=== PATIENT | female | born 1945 | race Caucasian/White ===

== ENCOUNTER 2018-03-11 17:26 | Emergency (ER) | payer MEDICARE ==
[~2018-03-11] VITALS: Ht 160 cm; Wt 99.8 kg
--- OUTSIDE RECORDS SUMMARY | 2018-03-11 17:28 | XMS REPORT ---
Author Author [facility] Address Unknown Phone Unavailable Care Team Providers Care Math And Physics Instructor Name Role Phone Unavailable Unavailable Problems This patient has no known problems. Allergies, Adverse Reactions, Alerts This patient has no known allergies or adverse reactions. Medications This patient has no known medications.
--- OUTSIDE RECORDS SUMMARY | 2018-03-11 17:28 | XMS REPORT | Clinical Summary ---
Author Author [facility] Address Unknown Phone Unavailable Care Team Providers Care Professor Of Oceanography Name Role Phone Asked, No Pcp PCP Unavailable Allergies No Known Allergies Medications Not on file Active Problems Not on file Encounters Care Team Description Date Type Specialty Shantanu Villarreal DO Hypertension, unspecified type (Primary Dx); Acute nonintractable headache, unspecified headache type 03/15/2017 Emergency Emergency Medicine - 03/16/2017 after 03/10/2017 Family History Medical History Relation Name Comments Heart attack Cousin Relation Name Status Comments Cousin Social History Date Tobacco Use Types Packs/Day Years Used Never Smoker Smokeless Tobacco: Never Used Alcohol Use Drinks/Week oz/Week Comments No Sex Assigned at Date Recorded Not on file Industry Job Start Date Occupation Not on file Not on file Not on file Travel End Travel History Travel Start No recent travel history available. Last Filed Vital Signs Time Taken Vital Sign Reading 03/16/2017 3:09 AM CATHETERIZATION LABORATORY TECHNICIAN Blood Pressure 159/65 03/16/2017 3:09 AM CATHETERIZATION LABORATORY TECHNICIAN Pulse 62 03/16/2017 3:09 AM CATHETERIZATION LABORATORY TECHNICIAN Temperature 36.9 C (98.4 F) 03/16/2017 3:09 AM CATHETERIZATION LABORATORY TECHNICIAN Respiratory Rate 16 03/16/2017 3:09 AM CATHETERIZATION LABORATORY TECHNICIAN Oxygen Saturation 97% - Inhaled Oxygen - Concentration - Weight - 03/15/2017 6:03 PM CATHETERIZATION LABORATORY TECHNICIAN Height 162.6 cm (5' 4") - Body Mass Index - Plan of Treatment Not on file Procedures Comments Procedure Name Priority Date/Time Associated Diagnosis ECG ED PRELIMINARY Routine 03/16/2017 INTERPRETATION 1:53 AM CATHETERIZATION LABORATORY TECHNICIAN ECG 12-LEAD STAT 03/16/2017 12:54 AM CATHETERIZATION LABORATORY TECHNICIAN ZZESTIMATED GFR STAT 03/16/2017 12:46 AM CATHETERIZATION LABORATORY TECHNICIAN PHOSPHORUS LEVEL STAT 03/16/2017 12:46 AM CATHETERIZATION LABORATORY TECHNICIAN MAGNESIUM LEVEL STAT 03/16/2017 12:46 AM CATHETERIZATION LABORATORY TECHNICIAN COMPREHENSIVE METABOLIC STAT 03/16/2017 PANEL 12:46 AM CATHETERIZATION LABORATORY TECHNICIAN URINALYSIS SCREEN AND STAT 03/16/2017 MICROSCOPY, WITH REFLEX 12:46 AM CATHETERIZATION LABORATORY TECHNICIAN TO CULTURE HC COMPLETE BLD COUNT STAT 03/16/2017 W/AUTO DIFF 12:46 AM CATHETERIZATION LABORATORY TECHNICIAN GRAM STAIN STAT 03/16/2017 12:46 AM CATHETERIZATION LABORATORY TECHNICIAN URINE CULTURE STAT 03/16/2017 12:46 AM CATHETERIZATION LABORATORY TECHNICIAN after 03/10/2017 Results * ECG ED Preliminary Interpretation - NOT AN ORDER (03/16/2017 1:53 AM CATHETERIZATION LABORATORY TECHNICIAN) Narrative Performed At Shantanu Villarreal DO 03/16/20171:53 AM ECG ED Preliminary Interpretation - Not an Order Performed by: SHANTANU VILLARREAL Authorized by: SHANTANU VILLARREAL ECG reviewed by ED Physician in the absence of a hebrew professor: yes Interpretation: Interpretation: abnormal Rate: ECG rate:62 ECG rate assessment: normal Rhythm: Rhythm: sinus rhythm Ectopy: Ectopy: none QRS: QRS axis:Normal QRS intervals:Normal Conduction: Conduction: abnormal Abnormal conduction: 1st degree ST segments: ST segments:Normal T waves: T waves: normal * ECG 12 lead (03/16/2017 12:54 AM CATHETERIZATION LABORATORY TECHNICIAN) Ventricular rate 62 [facility] Atrial rate 62 [facility] AL interval 230 [facility] QRSD interval 74 [facility] QT interval 384 [facility] QTC interval 389 [facility] P axis 1 64 [facility] QRS axis 1 17 [facility] T wave axis 45 [facility] EKG impression Sinus rhythm with 1st degree [facility] AV block-Anterior infarct , age undetermined-Abnormal ECG-No previous ECGs available- Performing Organization Address City/State/Zipcode Phone Number [facility] MUSE [address] [place] [address] * Urinalysis screen and microscopy, with reflex to culture (03/16/2017 12:46 AM CATHETERIZATION LABORATORY TECHNICIAN) Specimen site Clean catch [facility] DEPARTMENT OF PATHOLOGY AND GENOMIC MEDICINE Color, UA Straw [facility] DEPARTMENT OF PATHOLOGY AND GENOMIC MEDICINE Appearance, UA Clear [facility] DEPARTMENT OF PATHOLOGY AND GENOMIC MEDICINE Specific gravity, UA 1.018 1.001 - 1.035 [facility] DEPARTMENT OF PATHOLOGY AND GENOMIC MEDICINE pH, UA 6.0 5.0 - 8.5 [facility] DEPARTMENT OF PATHOLOGY AND GENOMIC MEDICINE Protein, UA 2+ (A) Negative [facility] DEPARTMENT OF PATHOLOGY AND GENOMIC MEDICINE Glucose, UA Negative Negative [facility] DEPARTMENT OF PATHOLOGY AND GENOMIC MEDICINE Ketones, UA Negative Negative [facility] DEPARTMENT OF PATHOLOGY AND GENOMIC MEDICINE Bilirubin, UA Negative Negative [facility] DEPARTMENT OF PATHOLOGY AND GENOMIC MEDICINE Blood, UA Small (A) Negative [facility] DEPARTMENT OF PATHOLOGY AND GENOMIC MEDICINE Nitrite, UA Negative Negative [facility] DEPARTMENT OF PATHOLOGY AND GENOMIC MEDICINE Urobilinogen, UA <2.0 <2.0 [facility] DEPARTMENT OF PATHOLOGY AND GENOMIC MEDICINE Leukocyte esterase, UA Large (A) Negative [facility] DEPARTMENT OF PATHOLOGY AND GENOMIC MEDICINE Epithelial cells, UA <1 /HPF [facility] DEPARTMENT OF PATHOLOGY AND GENOMIC MEDICINE Round epithelial cells, 1 0 - 1 /HPF [facility] DEPARTMENT OF UA PATHOLOGY AND GENOMIC MEDICINE WBC, UA 62 (H) 0 - 4 /HPF [facility] DEPARTMENT OF PATHOLOGY AND GENOMIC MEDICINE RBC, UA 6 (H) 0 - 2 /HPF [facility] DEPARTMENT OF PATHOLOGY AND GENOMIC MEDICINE Bacteria, UA Few None seen [facility] DEPARTMENT OF PATHOLOGY AND GENOMIC MEDICINE WBC clumps, UA Few (A) [facility] DEPARTMENT OF PATHOLOGY AND GENOMIC MEDICINE Yeast, UA None seen [facility] DEPARTMENT OF PATHOLOGY AND GENOMIC MEDICINE Yeast with pseudohyphae, None seen [facility] DEPARTMENT OF UA PATHOLOGY AND GENOMIC MEDICINE Specimen Urine Performing Organization Address City/[facility] Phone Number [facility] DEPARTMENT OF [address] [place] [address] PATHOLOGY AND GENOMIC MEDICINE * Estimated GFR (03/16/2017 12:46 AM CATHETERIZATION LABORATORY TECHNICIAN) GFR Non Af Amer 37 (A) mL/min/1.73 m2 [facility] DEPARTMENT OF PATHOLOGY AND GENOMIC MEDICINE GFR Af Amer 45 (A) mL/min/1.73 m2 [facility] DEPARTMENT OF Comment: PATHOLOGY AND Chronic kidney disease: <60 GENOMIC MEDICINE mL/min/1.73m2 Kidney failure: <15 mL/min/1.73m2 The estimated GFR is calculated from the IDMS-traceable Modification of Diet in Renal Disease Equation. The accuracy of the calculation is poor when the creatinine is normal. Calculated values >90 mL/min/1.73m2 are not reported. This equation has not been validated in children (<18 years), women, the elderly (>70 years), or ethnic groups other than Caucasians and Americans. Specimen Plasma specimen Performing Organization Address City/[facility]/Zipcode Phone Number [address] [address] PATHOLOGY AND GENOMIC MEDICINE * Gram stain (03/16/2017 12:46 AM CATHETERIZATION LABORATORY TECHNICIAN) Gram stain result Occasional WBC's [facility] DEPARTMENT OF Occasional Gram positive cocci PATHOLOGY AND in [facility] GENOMIC MEDICINE Occasional Gram positive rods Rare Gram negative rods Comment: Specimen Information Specimen Source: Urine Specimen Site: See UA Specimen Urine Performing Organization Address [facility] Phone Number [address] [address] PATHOLOGY AND GENOMIC MEDICINE * CBC with platelet and differential (03/16/2017 12:46 AM CATHETERIZATION LABORATORY TECHNICIAN) WBC 7.11 4.50 - 11.00 k/uL [facility] DEPARTMENT OF PATHOLOGY AND GENOMIC MEDICINE RBC 4.41 4.20 - 5.50 m/uL [facility] DEPARTMENT OF PATHOLOGY AND GENOMIC MEDICINE HGB 12.7 12.0 - 16.0 g/dL [facility] DEPARTMENT OF PATHOLOGY AND GENOMIC MEDICINE HCT 38.5 37.0 - 47.0 % [facility] DEPARTMENT OF PATHOLOGY AND GENOMIC MEDICINE MCV 87.3 82.0 - 100.0 fL [facility] DEPARTMENT OF PATHOLOGY AND GENOMIC MEDICINE MCH 28.8 27.0 - 34.0 pg [facility] DEPARTMENT OF PATHOLOGY AND GENOMIC MEDICINE MCHC 33.0 31.0 - 37.0 g/dL [facility] DEPARTMENT OF PATHOLOGY AND GENOMIC MEDICINE RDW - SD 40.5 37.0 - 55.0 fL [facility] DEPARTMENT OF PATHOLOGY AND GENOMIC MEDICINE MPV 9.9 8.8 - 13.2 fL [facility] DEPARTMENT OF PATHOLOGY AND GENOMIC MEDICINE Platelet count 201 150 - 400 k/uL [facility] DEPARTMENT OF PATHOLOGY AND GENOMIC MEDICINE Nucleated RBC 0.00 /100 WBC [facility] DEPARTMENT OF PATHOLOGY AND GENOMIC MEDICINE Neutrophils 56.9 39.0 - 69.0 % [facility] DEPARTMENT OF PATHOLOGY AND GENOMIC MEDICINE Lymphocytes 27.8 25.0 - 45.0 % [facility] DEPARTMENT OF PATHOLOGY AND GENOMIC MEDICINE Monocytes 12.5 (H) 0.0 - 10.0 % [facility] DEPARTMENT OF PATHOLOGY AND GENOMIC MEDICINE Eosinophils 2.0 0.0 - 5.0 % [facility] DEPARTMENT OF PATHOLOGY AND GENOMIC MEDICINE Basophils 0.7 0.0 - 1.0 % [facility] DEPARTMENT OF PATHOLOGY AND GENOMIC MEDICINE Immature granulocytes 0.1Comment: "Immature 0.0 - 1.0 % [facility] DEPARTMENT OF granulocytes" (promyelocytes, PATHOLOGY AND myelocytes, metamyelocytes) GENOMIC MEDICINE Specimen Blood Performing Organization Address City/[facility] Phone Number [facility] [place] [address] PATHOLOGY AND GENOMIC MEDICINE * Urine culture (03/16/2017 12:46 AM CATHETERIZATION LABORATORY TECHNICIAN) Urine culture isolate Gram negative rods [facility] DEPARTMENT OF 10-2 cfu/ml PATHOLOGY AND (A) GENOMIC MEDICINE Comment: Specimen Information Specimen Source: Urine Specimen Site: See UA Urine culture isolate Mixed Gram positive naif [facility] DEPARTMENT OF 10-5 cfu/ml PATHOLOGY AND (A) GENOMIC MEDICINE Specimen Urine Performing Organization Address [facility] Phone Number [facility] [place] [address] PATHOLOGY AND GENOMIC MEDICINE * Phosphorus level (03/16/2017 12:46 AM CATHETERIZATION LABORATORY TECHNICIAN) Phosphorus 4.2 2.4 - 4.5 mg/dL [facility] DEPARTMENT OF PATHOLOGY AND GENOMIC MEDICINE Specimen Plasma specimen Performing Organization Address [facility] [place] [address] PATHOLOGY AND GENOMIC MEDICINE * Magnesium level (03/16/2017 12:46 AM CATHETERIZATION LABORATORY TECHNICIAN) Magnesium 1.9 1.6 - 2.4 mg/dL [facility] DEPARTMENT OF PATHOLOGY AND GENOMIC MEDICINE Specimen Plasma specimen Performing Organization Address City/[facility] Phone Number [facility] [place] [address] PATHOLOGY AND GENOMIC MEDICINE * Comprehensive metabolic panel (03/16/2017 12:46 AM CATHETERIZATION LABORATORY TECHNICIAN) Sodium 140 135 - 148 mEq/L [facility] DEPARTMENT OF PATHOLOGY AND GENOMIC MEDICINE Potassium 5.2 (H) 3.5 - 5.0 mEq/L [facility] DEPARTMENT OF PATHOLOGY AND GENOMIC MEDICINE Chloride 100 98 - 112 mEq/L [facility] DEPARTMENT OF PATHOLOGY AND GENOMIC MEDICINE CO2 26 24 - 31 mEq/L [facility] DEPARTMENT OF PATHOLOGY AND GENOMIC MEDICINE Anion gap 14 7 - 15 mEq/L [facility] DEPARTMENT OF Comment: PATHOLOGY AND Starting from June GENOMIC MEDICINE , anion gap calculation no longer incorporates potassium. Please note the change. BUN 27 (H) 8 - 23 mg/dL [facility] DEPARTMENT OF PATHOLOGY AND GENOMIC MEDICINE Creatinine 1.4 (H) 0.5 - 0.9 mg/dL [facility] DEPARTMENT OF PATHOLOGY AND GENOMIC MEDICINE Glucose 102 (H) 65 - 99 mg/dL [facility] DEPARTMENT OF PATHOLOGY AND GENOMIC MEDICINE Calcium 10.0 8.8 - 10.2 mg/dL [facility] DEPARTMENT OF PATHOLOGY AND GENOMIC MEDICINE Protein 8.3 6.3 - 8.3 g/dL [facility] DEPARTMENT OF Comment: PATHOLOGY AND [place] GENOMIC MEDICINE 4.6-7.0 g/dL 1 week 4.4-7.6 g/dL 7 months-1year 5.1-7.3 g/dL 1-2 years5.6-7 .5 g/dL >3 years6.0-8 .0 g/dL 18-150 6.3-8.3 g/dL Albumin 3.3 (L) 3.5 - 5.0 g/dL [facility] DEPARTMENT OF PATHOLOGY AND GENOMIC MEDICINE A/G ratio 0.7 0.7 - 3.8 [facility] DEPARTMENT OF PATHOLOGY AND GENOMIC MEDICINE Alkaline phosphatase 82 35 - 104 U/L [facility] DEPARTMENT OF PATHOLOGY AND GENOMIC MEDICINE AST 41 (H) 10 - 35 U/L [facility] DEPARTMENT OF PATHOLOGY AND GENOMIC MEDICINE ALT 34 5 - 50 U/L [facility] DEPARTMENT OF PATHOLOGY AND GENOMIC MEDICINE Total bilirubin 0.3 0.0 - 1.2 mg/dL [facility] DEPARTMENT OF PATHOLOGY AND GENOMIC MEDICINE Specimen Plasma specimen Performing Organization Address City/State/Zipcode Phone Number [facility] DEPARTMENT OF [address] [place] [address] PATHOLOGY AND GENOMIC MEDICINE after 03/10/2017 Insurance Payer Benefit Subscriber ID Type Phone Address Plan / Group [facility] ADV[facility] xxxxxxxxxxx O ADVANTAGE [facility] Advance Directives Patient has advance care planning documents on file. For more information, miesha woodall contact: Stefan Trejo [address] [place] [address]
--- NOTE | 2018-03-11 18:03 | Diagnostic Imaging Report ---
EXAMINATION: CXR 2 VIEW - HOPD INDICATION: Back pain from fall. Hit posterior right ribs one week ago. COMPARISON: None FINDINGS: TUBES and LINES: None. LUNGS: Lungs are well inflated. Lungs are clear. There is no evidence of pneumonia or pulmonary edema. PLEURA: No pleural effusion or pneumothorax. HEART AND MEDIASTINUM: The cardiomediastinal silhouette is unremarkable. BONES AND SOFT TISSUES: No acute osseous lesion. Left rotator cuff anchor sutures. Soft tissues are unremarkable. UPPER ABDOMEN: No free air under the diaphragm. IMPRESSION: No acute thoracic abnormality. Signed by: Dr. Jordy Hou M.D. on 03/11/2018 6:00 PM
== END 2018-03-11 18:44 | disposition home or self-care (01) ==
LOC: FSED 17:26
DX: M54.6 Pain in thoracic spine (principal); R07.89 Other chest pain; S20.211A Contusion of right front wall of thorax, initial encounter; M62.830 Muscle spasm of back; W01.198A Fall on same level from slipping, tripping and stumbling with subsequent striking against other object, initial encounter; Y92.008 Other place in unspecified non-institutional (private) residence as the place of occurrence of the external cause; I10 Essential (primary) hypertension
CPT/HCPCS: 71046; 99283

== ENCOUNTER 2018-03-31 18:27 | Emergency (ER) | payer MEDICARE ==
[~2018-03-31] VITALS: Ht 160 cm; Wt 99.8 kg
--- OUTSIDE RECORDS SUMMARY | 2018-03-31 18:29 | XMS REPORT | Clinical Summary ---
Author Author [facility] Organization [facility] Address Unknown Phone Unavailable Care Team Providers Care Cue Selector Name Role Phone Asked, No Pcp PCP Unavailable Allergies No Known Allergies Medications Not on file Active Problems Not on file Family History Medical History Relation Name Comments [...] travel history available. Last Filed Vital Signs Not on file Plan of Treatment Not on file Results Not on fileafter 03/30/2017 Insurance Payer Benefit Subscriber ID Type Phone Address Plan / Group [employer] xxxxxxxxxxx HMO ADVANTAGE [facility] (Home) [place] [address] Advance Directives Patient has advance care planning documents on file. For more information, miesha woodall contact: Stefan Trejo [address] [place] [address]
[2018-03-31 20:05] VITALS: BP 164/76
== END 2018-03-31 19:20 | disposition home or self-care (01) ==
LOC: FSED 18:27
DX: I10 Essential (primary) hypertension (principal); R51 Headache
CPT/HCPCS: 99282

== ENCOUNTER 2018-04-28 17:09 | Emergency (ER) | payer MEDICARE ==
[~2018-04-28] VITALS: Ht 160 cm; Wt 99.8 kg
--- OUTSIDE RECORDS SUMMARY | 2018-04-28 17:12 | XMS REPORT | Clinical Summary ---
Author Author [facility] Organization [facility] Address Unknown Phone Unavailable Care Team Providers Care Capacity Management Specialist Name Role Phone Asked, No Pcp PCP [...] Not on file Results Not on fileafter 04/27/2017 Insurance Payer Benefit Subscriber ID Type Phone Address Plan / Group [employer] xxxxxxxxxxx HMO ADVANTAGE [facility] (Home) [place] [address] Advance Directives Patient has advance care planning documents on file. For more information, imesha woodall contact: Stefan Trejo [address] [place] [address]
[2018-04-28] MEDS ORDERED: HYDRALAZINE HCL 20 MG/ML VIAL IV STA (17:36)
[2018-04-28] MEDS ORDERED: LABETALOL HCL 5 MG/ML 20ML VIAL IV STA (17:42)
[2018-04-28] MEDS: HYDRALAZINE HCL 25 MG TAB PO NR ×2 (17:50→18:59)
== END 2018-04-28 19:01 | disposition home or self-care (01) ==
LOC: FSED 17:09
DX: R07.89 Other chest pain (principal); I10 Essential (primary) hypertension; F41.9 Anxiety disorder, unspecified
CPT/HCPCS: 80053; 82553; 84484; 85025; 99284; J0360; J3490

== ENCOUNTER 2019-02-12 18:13 | Emergency (ER) | payer MEDICARE ==
[~2019-02-12] VITALS: Ht 160 cm; Wt 90.7 kg
--- NOTE | 2019-02-12 18:57 | NUR ---
WOUND CLEANED WITH NORMAL SALINE. [address] MARSH. PT TOLORATED WELL.
[2019-02-12] MEDS ORDERED: LIDOCAINE HCL 1% LOCAL INJ 20 ML VIAL INJ ONE (19:00)
--- NOTE | 2019-02-12 19:23 | Diagnostic Imaging Report ---
History: Fell, head trauma Comparison studies: None Technique: Axial images were obtained from the skull base to the vertex. Coronal and sagittal reconstructions obtained from the axial data. Dose modulation, iterative reconstruction, and/or weight based adjustment of the mA/kV was utilized to reduce the radiation dose to as low as reasonably achievable. Intravenous contrast: None Findings: Scalp/skull: No abnormalities. No fractures, blastic or lytic lesions. Extra-axial spaces: No masses. No fluid collections. Brain sulci: Mildly prominent. Ventricles: Mild compensatory dilatation. No hydrocephalus. Parenchyma: Ill-defined, confluent hypodensities in the supratentorial white matter are small vessel ischemic changes. No masses, hemorrhage, acute or chronic cortical vascular insults. Sellar/suprasellar region: No abnormalities Craniocervical junction: Patent foramen magnum. No Chiari one malformation. Incidental findings: Subtle atherosclerotic calcifications in the carotid siphons and left vertebral artery. IMPRESSION: No acute abnormalities. Chronic findings: 1. Mild generalized volume loss. 2. Moderate supratentorial white matter small vessel ischemic changes. Signed by: Dr. Victorino Lane M.D. on 02/12/2019 7:20 PM
== END 2019-02-12 19:40 | disposition home or self-care (01) ==
LOC: FSED 18:13
DX: S01.81XA Laceration without foreign body of other part of head, initial encounter (principal); W19.XXXA Unspecified fall, initial encounter; Y93.9 Activity, unspecified; Y92.009 Unspecified place in unspecified non-institutional (private) residence as the place of occurrence of the external cause; S06.0X0A Concussion without loss of consciousness, initial encounter
CPT/HCPCS: 70450; 99283

== ENCOUNTER 2019-02-23 23:02 | Emergency (ER) | payer MEDICARE ==
[~2019-02-23] VITALS: Ht 160 cm; Wt 90.7 kg
--- NOTE | 2019-02-24 00:02 | Diagnostic Imaging Report ---
Exam: Head CT without contrast History: Headache x2 days Comparison studies: Head CT 02/12/2019. Technique: Axial images were obtained from the skull base to the vertex. Coronal and sagittal images reconstructed from the axial data. Dose modulation, iterative reconstruction, and/or weight based adjustment of the mA/kV was utilized to reduce the radiation dose to as low as reasonably achievable. Radiation dose: Total DLP: 969 mGy*cm. Estimated effective dose: DLP x 0.015 Intravenous contrast: None Findings: Scalp: No abnormalities. Bones: No fractures, blastic or lytic lesions. Brain sulci: Appropriate for age. Ventricles: Mild compensatory dilatation. No acute hydrocephalus. Extra-axial spaces: No masses, no fluid collection. Parenchyma: Unchanged 3 mm calcification in the right peridentate cerebellum without surrounding edema which may be a small cavernous malformation or possibly dystrophic as sequela prior nonspecific infection/inflammation. Dystrophic calcification No mass, acute hemorrhage or acute or chronic cortical insults. Ill-defined and confluent hypodensities in the supratentorial white matter are nonspecific but are most compatible with chronic microvascular ischemic changes. Sellar/suprasellar region: No abnormalities. Craniocervical junction: Patent foramen magnum. No Chiari one malformation. Incidental findings: Moderate degenerative changes at the right TMJ. Atherosclerotic calcifications in the carotid siphons an in the left vertebral artery. IMPRESSION: No acute abnormalities or changes from the prior head CT 02/12/2019. Chronic findings 1. Moderate chronic microvascular ischemic changes. 2. Mild generalized volume loss. 3. Incidental small right cerebellar calcification, as described. Signed by: Dr. Lloyd Nielsen M.D. on 02/23/2019 11:59 PM
[2019-02-24 00:25] VITALS: BP 140/72
== END 2019-02-24 00:15 | disposition home or self-care (01) ==
LOC: FSED 23:02
DX: G44.219 Episodic tension-type headache, not intractable (principal)
CPT/HCPCS: 70450; 99283

== ENCOUNTER 2019-08-28 19:30 | Observation (INO) | payer MEDICARE ==
[~2019-08-28] VITALS: Ht 160 cm; Wt 89.9 kg
--- OUTSIDE RECORDS SUMMARY | 2019-08-28 19:34 | XMS REPORT | Continuity of Care Document ---
Author Author [facility] t Organization [facility] Address [address] [place] [address] Phone Unavailable Care Team Providers Care Air Pollution Specialist Name Role Phone NONSTAFF PCP Unavailable SUZETTE LANDRY Attjesus Unavailable BREANNA MARSH Unavailable Estefany MUNIZ Attjesus Unavailable Payers Payer Name Policy Type Policy Number Effective Date Expiration Date Storm payne Kelsey Care Medicare Advantage [id number] [facility] Problems This patient has no known problems. Allergies, Adverse Reactions, Alerts This patient has no known allergies or adverse reactions. Family History Family Member Diagnosis Comments Start Date Stop Date Source Cousin Heart attack [place] Meth odist Social History Social Habit Start Date Stop Date Quantity Comments Source Sex Assigned At Kevin simms Neil Alcohol intake 2017-03-16 00:00:00 2017-03-16 00:00:00 Current non-drinker of alcohol (finding) Stefan Trejo Smoking Status Start Date Stop Date Source Never smoker [place] Ayesha christine Medications This patient has no known medications. Procedures Procedure Date / Time Performed Performing Clinician Sourc e RPR F/E/E/N/L/M 2.5 CM/< 2019-02-12 00:00:00 [facility] Encounters Start Date/Time End Date/Time Encounter Type Admission Type Attendi [facility] Facility Care Department Encounter ID Source 2019-02-23 23:02:00 2019-02-24 00:15:00 Departed Emergency Room 1 SUZETTE LANDRY [facility] [id number] [facility] 2019-02-12 18:13:00 2019-02-12 19:40:00 Departed Emergency Room 1 BREANNA MARSH [facility] [id number] [facility] 2018-04-28 17:09:00 2018-04-28 19:01:00 Departed Emergency Room [facility] [id number] [facility] 2018-03-31 18:27:00 2018-03-31 19:20:00 Departed Emergency Room [facility] [id number] [facility] 2018-03-11 17:26:00 2018-03-11 18:44:00 Departed Emergency Room 1 KEVEN MUNIZ [facility] [id number] [facility] Results Test Description Test Time Test Comments Results Result Comments Source [facility] 2019-02-23 23:51:00 [place] [address] Patient Name: LOUISE SIBLEY MR #: [id number] : 1945 Age/Sex: 73/F Req #: [id number] Adm Physician: Ordered by: SUZETTE LANDRY MD Report #: [id number] Location: [facility] Room/Bed: Procedure: [id number] HOPD/CT BRAIN WO-[facility] Exam Date: Exam Time: REPORT STATUS: Signed Exam: Head CT without contrast History: Headache x2 days Comparison studies: Head CT 02/12/2019. Technique: Axial images were obtained from the skull base to the vertex. Coronal and sagittal images reconstructed from the axial data. Dose modulation, iterative reconstruction, and/or weight based adjustment of the mA/kV was utilized to reduce the radiation dose to as low as reasonably achievable. Radiation dose: Total DLP: 969 mGy*cm. Estimated effective dose: DLP x 0.015 Intravenous contrast: None Findings: Scalp: No abnormalities. Bones: No fractures, blastic or lytic lesions. Brain sulci: Appropriate for age. Ventricles: Mild compensatory dilatation. No acute hydrocephalus. Extra- axial spaces: No masses, no fluid collection. Parenchyma: Unchanged 3 mm calcification in the right peridentate cerebellum without surrounding edema which may be a small cavernous malformation or possibly dystrophic as sequela prior nonspecific infection/inflammation. Dystrophic calcification No mass, acute hemorrhage or acute or chronic cortical insults. Ill-defined and confluent hypodensities in the supratentorial white matter are nonspecific but are most compatible with chronic microvascular ischemic changes. Sellar/suprasellar region: No abnormalities. Craniocervical junction: Patent foramen magnum. No Chiari one malformation. Incidental findings: Moderate degenerative changes at the right TMJ. Atherosclerotic calcifications in the carotid siphons an in the left vertebral artery. IMPRESSION: No acute abnormalities or changes from the prior head CT 02/12/2019. Chronic findings 1. Moderate chronic microvascular ischemic changes. 2. Mild generalized volume loss. 3. Incidental small right cerebellar calcification, as described. Signed by: Dr. Doug Nielsen M.D. on 02/23/2019 11:59 PM Dictated By: DOUG NIELSEN MD 58 Transcribed By: KASSIDY on 02/23/192358 COPY TO: SUZETTE LANDRY MD CT BRAIN -[facility] 2019-02-12 19:18:00 [place] [address] Patient Name: LOUISE SIBLEY MR #: [id number] : 1945 Age/Sex: 73/F Req #: [id number] Adm Physician: Ordered by: BREANNA MARSH DO Report #: [id number] [facility] Room/Bed: Procedure: [id number] HOPD/CT BRAIN [facility] Exam Date: 02/12/19 Exam Time: 1906 REPORT STATUS: Signed History: Fell, head trauma Comparison studies: None Technique: Axial images were obtained from the skull base to the vertex. Coronal and sagittal reconstructions obtained from the axial data. Dose modulation, iterative reconstruction, and/or weight based adjustment of the mA/kV was utilized to reduce the radiation dose to as low as reasonably achievable. Intravenous contrast: None Findings: Scalp/skull: No abnormalities. No fractures, blastic or lytic lesions. Extra-axial spaces: No masses. No fluid collections. Brain sulci: Mildly prominent. Ventricles: Mild compensatory dilatation. No hydrocephalus. Parenchyma: Ill-defined, confluent hypodensities in the supratentorial white matter are small vessel ischemic changes. No masses, hemorrhage, acute or chronic cortical vascular insults. Sellar/suprasellar region: No abnormalities Craniocervical junction: Patent foramen magnum. No Chiari one malformation. Incidental findings: Subtle atherosclerotic calcifications in the carotid siphons and left vertebral artery. IMPRESSION: No acute abnormalities. Chronic findings: 1. Mild generalized volume loss. 2. Moderate supratentorial white matter small vessel ischemic changes. Signed by: Dr. Victorino Lane M.D. on 02/12/2019 7:20 PM Dictated By: VICTORINO LANE MD, MD 19 Transcribed By: KASSIDY on 02/12/191919 COPY TO: BREANNA MARSH DO [facility] 2018-03-11 17:59:00 [place] [address] Patient Name: LOUISE SIBLEY MR #: [id number] : 1945 Age/Sex: 72/F Req #: [id number] Adm Physician: Ordered by: KEVEN MUNIZ MD Report #: [id number] [facility] Room/Bed: Procedure: [id number] HOPD/CXR 2 VIEW - [facility] Exam Date: 03/11/18 Exam Time: 1750 REPORT STATUS: Signed EXAMINATION: CXR 2 VIEW - [facility] INDICATION: Back pain from fall. Hit posterior right ribs one week ago. COMPARISON: None FINDINGS: TUBES and LINES: None. LUNGS: Lungs are well inflated. Lungs are clear. There is no evidence of pneumonia or pulmonary edema. PLEURA: No pleural effusion or pneumothorax. HEART AND MEDIASTINUM: The cardiomediastinal silhouette is unremarkable. BONES AND SOFT TISSUES: No acute osseous lesion. Left rotator cuff anchor sutures. Soft tissues are unremarkable. UPPER ABDOMEN: No free air under the diaphragm. IMPRESSION: No acute thoracic abnormality. Signed by: Dr. Jordy Reyes M.D. on 03/11/2018 6:00 PM Dictated By: JORDY REYES MD 1800 Transcribed By: KASSIDY on 03/11/18 1800 COPY TO: KEEVN MUNIZ MD
--- OUTSIDE RECORDS SUMMARY | 2019-08-28 19:34 | XMS REPORT | Clinical Summary ---
Author Author [facility] Address Unknown Phone Unavailable Care Team Providers Care Runner Out Name Role Phone Asked, No Pcp PCP Unavailable Allergies No Known Allergies Medications Not on file Active Problems Not on file Family History Medical History Relation Name Comments Heart attack Cousin Relation Name Status Comments Cousin Social History Date Tobacco Use Types Packs/Day Years Used Never Smoker Smokeless Tobacco: Never Used Drinks/Week oz/Week Comments Alcohol Use No Sex Assigned at Date Recorded Not on file Industry Job Start Date Occupation Not on file Not on file Not on file Travel End Travel History Travel Start No recent travel history available. Last Filed Vital Signs Not on file Plan of Treatment Not on file Results Not on fileafter 08/27/2018 Insurance Type Payer Benefit Subscriber ID Effective Phone Address Plan / Dates Group HMO [employer] ADVANTAGE K[employer] xxxxxxxxxxx 2016- P ADVANTAGE resent [facility] (Home) [place] [address] Advance Directives For more information, please contact: [phone] Patient Child Welfare Social Worker Explanation Type Date Recorded Advance Directives, 03/15/2017 10:20 PM Living Will and Medical Power of Major Assembly Inspector
[2019-08-28] MEDS ORDERED: ACETAMINOPHEN 325 MG TAB PO ONE (20:15)
[2019-08-28] MEDS ORDERED: NITROGLYCERIN 2% OINT 1 GM PKT TOP ONE (20:15)
--- NOTE | 2019-08-28 21:18 | Diagnostic Imaging Report ---
EXAMINATION: CXR 2 VIEW - [facility] INDICATION: ^chest pain ^[id number] ^2099 COMPARISON: 03/11/2018 FINDINGS: PA and lateral views TUBES and LINES: None. LUNGS: Lungs are well inflated. There is no evidence of pneumonia or pulmonary edema. PLEURA: No pleural effusion or pneumothorax. HEART AND MEDIASTINUM: The cardiomediastinal silhouette is unremarkable. BONES AND SOFT TISSUES: No acute osseous lesion. Left humeral head anchor screws are again seen. Soft tissues are unremarkable. UPPER ABDOMEN: No free air under the diaphragm. IMPRESSION: No acute thoracic abnormality. Signed by: Dr. Guanako Ho MD on 08/28/2019 9:14 PM
--- NOTE | 2019-08-28 21:32 | Emergency Department Note ---
History of Present Illnes History of Present Illness History of Present Illness This is a 73 year old female hx of aortic valve stenosis (2 cm2 per pt) c/o chest pressure on and off since this AM, no SOB no f/c no cough. Arrival Mode: Car Wrap Yarn Sorter Required: No Onset (how long ago): hour(s) Radiation: Reports non-radiation Onset quality: gradual Duration (how long): hour(s) Timing of current episode: intermittent Progression: waxing and waning Chronicity: new Relieving factors: none Exacerbating factors: none Associated symptoms: Reports denies other symptoms Treatments prior to arrival: none Risk factors: age, Past Medical/Family History Physician Review I have reviewed the patient's past medical and family history. Any updates have been documented here. Past Medical History Recent Fever: No Clinical Suspicion of Infectio: No New/Unexplained Change in Ment: No Past Medical History: Hypertension Other Surgery: SHOULDER Social History Smoking Cessation: Never Smoker Family History Family history of heart diseas: No Other Last Tetanus: UTD Any Pre-Existing Lines (PICC,: No Review of Systems Review of Systems Constitutional: Reports no symptoms EENTM: Reports no symptoms Cardiovascular: Reports as per HPI, Reports chest pain Respiratory: Reports no symptoms Gastrointestinal: Reports no symptoms Genitourinary: Reports no symptoms Musculoskeletal: Reports no symptoms Integumentary: Reports no symptoms Neurological: Reports no symptoms Psychological: Reports no symptoms Endocrine: Reports no symptoms Hematological/Lymphatic: Reports no symptoms Physical Exam Related Data Allergies: Coded Allergies: No Known Allergies (Unverified , 03/11/18) Physical Exam CONSTITUTIONAL Constitutional: Reports well-developed, Reports well-nourished HENT HENT: Reports normocephalic, Reports atraumatic, Reports oropharynx clear/moist, Reports nose normal HENT L/R: Reports left ext ear normal, Reports right ext ear normal EYES Eyes: Reports PERRL, Reports conjunctivae normal NECK Neck: Reports ROM normal PULMONARY Pulmonary: Reports effort normal, Reports breath sounds normal CARDIOVASCULAR Cardiovascular: Reports regular rhythm, Reports capillary refill normal, Reports bradycardia, Reports other (3/6 crescendo-decrescendo at the [place], ) GASTROINTESTINAL Abdominal: Reports soft, Reports nontender, Reports bowel sounds normal GENITOURINARY Genitourinary: Reports exam deferred SKIN Skin: Reports warm, Reports dry MUSCULOSKELETAL Musculoskeletal: Reports ROM normal NEUROLOGICAL Neurological: Reports alert, Reports oriented x 3, Reports no gross motor or sensory deficits PSYCHOLOGICAL Psychological: Reports mood/affect normal, Reports judgement normal Results Laboratory Laboratory comments Cr 1.6, BNP 273, aleksandar 205 Imaging Imaging results reviewed: Yes Impressions WNL Diagnostics Tests Diagnostic test(s) reviewed: Yes Procedures 12 Lead ECG Interpretation ECG Interpretation : ECG: ECG 1 Wrap Yarn Sorter: Interpreted by ED physician Date: Aug 28, 2019 Time: 20:00 Prior ECG tracings: reviewed Rhythm: sinus rhythm Rate: bradycardia QRS axis: normal Conduction: 1st degree ST segments normal: Yes Clinical Impression: abnormal ECG Additional Comments old 1st degree Heart block Assessment & Plan Medical Decision Making MDM high risk chest pain, will work up and tx for ACS. Reassessment Reassessment time: 21:30 Reassessment chest pain gone, declined observation at first but now agrees to [facility] ( refused to go to [facility]). 1 hour later, pt changed her mind, asked to be here at [facility]. Assessment & Plan Final Impression: (1) Chest pain (2) Aortic stenosis (3) Uncontrolled hypertension Depart Disposition: ADMITTED Medications in the ED Nitroglycerin 1 gm ONCE ONCE TOP ; Start 08/28/19 at 20:15; Stop 08/28/19 at 20:16; Status DC Acetaminophen 650 mg ONCE ONCE PO ; Start 08/28/19 at 20:15; Stop 08/28/19 at 20:16 Physician Attestation Provider Attestation Case discussed with FRANCISCO Carmen MD Aug 28, 2019 21:32
[2019-08-28] MEDS ORDERED: ENALAPRILAT IV INJ 1.25 MG/ML VIAL IV PRN (23:00)
[2019-08-28] MEDS ORDERED: ASPIRIN 81 MG CHEW TAB PO ONE (23:00)
[2019-08-28] MEDS ORDERED: ZOLPIDEM TARTRATE 5 MG TAB PO PRN (23:00)
[2019-08-28] MEDS ORDERED: NITROGLYCERIN 0.4 MG SUBL SL PRN (23:00)
[2019-08-28] MEDS ORDERED: ONDANSETRON HCL INJ 2MG/ML 2ML 2 MG/ML VIAL IV PRN (23:00)
[2019-08-28] MEDS ORDERED: DIPHENHYDRAMINE HCL INJ 50 MG/ML VIAL IV PRN (23:00)
[2019-08-28] MEDS ORDERED: ACETAMINOPHEN 325 MG TAB PO PRN (23:00)
--- OUTSIDE RECORDS SUMMARY | 2019-08-28 23:05 | XMS REPORT | Clinical Summary ---
Author Author [facility] Address Unknown Phone Unavailable Care Team Providers Care Purchasing/Receiving Name Role Phone Asked, No Pcp PCP [...] ADVANTAGE KEL[employer] xxxxxxxxxxx 2016- P ADVANTAGE resent [facility] (Home) [place] [address] Advance Directives For more information, please contact: [phone] Patient Merchant Banker Explanation Type Date Recorded Advance Directives, 03/15/2017 10:20 PM Living Will and Medical Power of Dry Placer Machine Operator
--- OUTSIDE RECORDS SUMMARY | 2019-08-28 23:05 | XMS REPORT | Continuity of Care Document ---
Author Author [facility] t Organization [facility] Address [address] [place] [address] Phone Unavailable Care Team Providers Care Geospatial Analyst Name Role Phone NONSTAFF PCP Unavailable Estefany KENNEDY Attphys Unavailable SUZETTE LANDRY Attphys Unavailable BREANNA MARSH Attphys Unavailable Estefany MUNIZ Attphys Unavailable Payers Payer Name Policy Type Policy Number Effective Date Expiration Date Storm payne Kel[employer] Medicare Advantage [id number] [facility] Problems This patient has no known problems. Allergies, Adverse Reactions, Alerts This patient has no known allergies or adverse reactions. Family History Family Member Diagnosis Comments Start Date Stop Date Source Cousin Heart attack [place] Meth odist Social History Social Habit Start Date Stop Date Quantity Comments Source Sex Assigned At Kevin simms Neil Alcohol intake 2017-03-16 00:00:00 2017-03-16 00:00:00 Current non-drinker of alcohol (finding) Stefan Trejo Smoking Status Start Date Stop Date Source Never smoker [place] Ayesha christine Medications This patient has no known medications. Procedures Procedure Date / Time Performed Performing Clinician Sourc e RPR F/E/E/N/L/M 2.5 CM/< 2019-02-12 00:00:00 [facility] Encounters Start Date/Time End Date/Time Encounter Type Admission Type Attendi [facility] Facility Care Department Encounter ID Source 2019-02-23 23:02:00 2019-02-24 00:15:00 Departed Emergency Room 1 SUZETTE LANDRY [facility] [id number] [facility] 2019-02-12 18:13:00 2019-02-12 19:40:00 Departed Emergency Room 1 BREANNA MARSH [facility] [id number] [facility] 2018-04-28 17:09:00 2018-04-28 19:01:00 Departed Emergency Room [facility] [id number] [facility] 2018-03-31 18:27:00 2018-03-31 19:20:00 Departed Emergency Room [facility] [id number] [facility] 2018-03-11 17:26:00 2018-03-11 18:44:00 Departed Emergency Room 1 KEVEN MUNIZ [facility] [id number] [facility] Results Test Description Test Time Test Comments Results Result Comments Source CXR 2 VIEW - [facility] 2019-08-28 21:13:00 [place] [address] Patient Name: LOUISE SIBLEY MR #: [id number] : 1945 Age/Sex: 73/F Req #: [id number] Adm Physician: Ordered by: FRANCISCO KENNEDY MD Report #: [id number] Location: [facility] Room/Bed: Procedure: [id number] HOPD/CXR 2 VIEW - [facility] Exam Date: 08/28/19 Exam Time: 2099 REPORT STATUS: Signed EXAMINATION: CXR 2 VIEW - [facility] INDICATION: chest pain [id number] COMPARISON: 03/11/2018 FINDINGS: PA and lateral views TUBES and LINES: None. LUNGS: Lungs are well inflated. There is no evidence of pneumonia or pulmonary edema. PLEURA: No pleural effusion or pneumothorax. HEART AND MEDIASTINUM: The cardiomediastinal silhouette is unremarkable. BONES AND SOFT TISSUES: No acute osseous lesion. Left humeral head anchor screws are again seen. Soft tissues are unremarkable. UPPER ABDOMEN: No free air under the diaphragm. IMPRESSION: No acute thoracic abnormality. Signed by: Dr. Guanako Hope MD on 08/28/2019 9:14 PM Dictated By: GUANAKO HOPE MD 13 Transcribed By: KASSIDY on 08/28/192113 COPY TO: FRANCISCO KENNEDY MD CT BRAIN WO-[facility] 2019-02-23 23:51:00 [place] [address] Patient Name: LOUISE SIBLEY MR #: [id number] : 1945 Age/Sex: 73/F Req #: [id number] Adm Physician: Ordered by: SUZETTE LANDRY MD Report #: [id number] Location: [facility] Room/Bed: Procedure: [id number] HOPD/CT BRAIN WO-[facility] Exam Date: Exam Time: REPORT STATUS: [...] calcification, as described. Signed by: Dr. Doug Huerta M.D. on 02/23/2019 11:59 PM Dictated By: DOUG HUERTA MD 58 Transcribed By: KASSIDY on 02/23/192358 COPY TO: SUZETTE LANDRY MD CT BRAIN WO-[facility] 2019-02-12 19:18:00 [place] [address] Patient Name: LOUISE SIBLEY MR #: [id number] : 1945 Age/Sex: 73/F Req #: [id number] Adm Physician: Ordered by: BREANNA MARSH DO Report #: [id number] Location: [facility] Room/Bed: Procedure: HOPD/CT BRAIN WO-[facility] Exam Date: 02/12/19 Exam Time: 190 REPORT STATUS: Signed History: Fell, head trauma [...] vessel ischemic changes. Signed by: Dr. Victorino Oneil M.D. on 02/12/2019 7:20 PM Dictated By: VICTORINO ONEIL MD, MD 19 Transcribed By: KASSIDY on 02/12/191919 COPY TO: BREANNA MARSH DO CXR 2 [facility] 2018-03-11 17:59:00 [place] [address] Patient Name: LOUISE SIBLEY MR #: [id number] : 1945 Age/Sex: 72/F Req #: [id number] Adm Physician: Ordered by: KEVEN MUNIZ MD Report #: [id number] Location: [facility] Room/Bed: Procedure: [id number] HOPD/CXR 2 VIEW - [facility] Exam Date: [...] By: KASSIDY on 03/11/18 1800 COPY TO: KEVEN MUNIZ MD
[2019-08-28] MEDS ORDERED: ASPIRIN 325 MG TAB ONE (23:45)
[2019-08-28] MEDS ORDERED: NITROGLYCERIN 2% OINT 1 GM PKT ONE (23:45)
[2019-08-28] MEDS: FAMOTIDINE 20 MG TAB PO SCH (23:57)
[2019-08-29] VITALS (8 sets, daily range): BP systolic 129–150; BP diastolic 55–67
[2019-08-29] MEDS ORDERED: FAMOTIDINE 20 MG TAB ONE (00:02)
--- NOTE | 2019-08-29 00:07 | NUR ---
{null, RECEIVED PATIENT FROM [facility] ED AT THIS TIME VIA EMS STRETCHER. TELE BOX #4 PLACED, PATIENT RUNNING SB. PATIENT A&OX3. NO PAIN REPORTED AT THIS TIME. NO CHEST PAIN, NO CHEST PRESSURE. LUNG SOUNDS CLEAR. BOWEL SOUNDS ACTIVE. PEDAL PULSES PALPABLE. NO EDEMA NOTED. SKIN INTACT. R AC 20G IV ASYMPTOMATIC, INTACT, AND PATENT. NO S&S OF DISTRESS AT THIS TIME. ORIENTED PATIENT TO ROOM, CALL LIGHT SYSTEM, AND PATIENT EDUCATION HANDBOOK. DISCUSSED PLAN OF CARE AT THIS TIME. NO QUESTIONS OR CONCERNS REPORTED. BED LOCKED IN LOWEST POSITION, SIDE RAILS UPX2, CALL LIGHT IN REACH. }
[2019-08-29] MEDS ORDERED: DIOVAN160 MG PO (01:15)
[2019-08-29] MEDS ORDERED: CRESTOR10 MG PO (01:15)
[2019-08-29] MEDS ORDERED: BACLOFEN10 MG PO (01:15)
[2019-08-29] MEDS ORDERED: AMLODIPINE BESY10 MG PO (01:15)
[2019-08-29] MEDS ORDERED: ZEBETA10 MG PO (01:15)
[2019-08-29] MEDS ORDERED: ESIDRIX25 MG PO (01:15)
[2019-08-29] MEDS ORDERED: SPIRONOLACTONE25 MG PO (01:15)
[2019-08-29] MEDS ORDERED: CATAPRES-TTS 31 EA TD (01:15)
--- NOTE | 2019-08-29 01:15 | NUR ---
{null, COVID SWAB PERFORMED BY ED NURSE AT [facility] ED. SENT WITH PATIENT VIA EMS. SENT TO LAB. }
[2019-08-29] MEDS ORDERED: MULTI-VITAMIN1 EACH PO (04:02)
[2019-08-29] MEDS ORDERED: FISH OIL 1,0001 EAC3 PO (04:02)
--- NOTE | 2019-08-29 07:00 | NUR ---
{null, BEDSIDE SHIFT REPORT RECEIVED FROM ADMITTING COUNSELOR RN. PT DENIES NEEDS AT THIS TIME. }
[2019-08-29 07:58] LABS: CHOL/HDL RATIO 4.5 (3.0-3.6)
[2019-08-29] MEDS: AMLODIPINE BESYLATE 10 MG TAB PO SCH ×2 (08:54→09:29)
[2019-08-29] MEDS: HYDROCHLOROTHIAZIDE 25 MG TAB PO SCH ×2 (08:55→09:00)
[2019-08-29] MEDS ORDERED: MULTIVITAMINS/MINERALS TAB PO SCH (09:00)
[2019-08-29] MEDS ORDERED: SPIRONOLACTONE 25 MG TAB PO SCH (09:00)
--- NOTE | 2019-08-29 09:38 | NUR ---
{null, Pt. expressed no spiritual or emotional concerns. Marketing Instructor provided hospitality and information on how to reach machine sole leveler, if needed. No need to follow at this time. [employer] Marketing Instructor Spiritual Care Department O: [phone] }
[2019-08-29] MEDS: FAMOTIDINE 20 MG TAB PO SCH (11:00)
[2019-08-29 13:41] LABS: CREATINE KINASE MB 1.2 ng/mL (0-5.0)
[2019-08-29] MEDS ORDERED: SIMVASTATIN 40 MG TAB PO SCH ×2 (21:00)
--- NOTE | 2019-08-30 03:31 | History and Physical ---
PRIMARY CARE PHYSICIAN: Dr. Copeland at [facility] in [place]. CHIEF COMPLAINT: Chest pain, nonradiating, more like a pressure. HISTORY OF PRESENT ILLNESS: She denies any diaphoresis, shortness of breath, fever, chills, cough, ill contacts. She reports had seen her PCP and had an echocardiogram done 2 weeks ago, which she was told has aortic stenosis. She reports the pain started yesterday with headache, so presented to the ER for further evaluation. At the freestanding emergency room, her systolic blood pressure was as high as 200. Upon arrival to our facility, systolic blood pressure was 170. She was continued on her home medication, nitroglycerin was given for chest pain. She reports the pain is resolved, rates the pain 03/28. Chest x-ray was unremarkable. PAST MEDICAL HISTORY: 1. Hypertension. 2. COPD. 3. High cholesterol. PAST SURGICAL HISTORY: She reports left shoulder surgery. FAMILY MEDICAL HISTORY: Reports father of lung cancer and mother of small cell carcinoma. SOCIAL HISTORY: She denies any tobacco, alcohol, or illicit drug use. ALLERGIES: SHE HAS NO KNOWN ALLERGIES. REVIEW OF SYSTEMS: A 12-system review was done and negative except as reported in HPI. PHYSICAL EXAMINATION: VITAL SIGNS: Temperature 97.5, pulse is 50, respirations 18, blood pressure 137/55, pulse ox is 98% on room air. GENERAL: No acute distress. HEENT: Normocephalic and atraumatic. NECK: Supple. LUNGS: Clear to auscultation. CARDIOVASCULAR: Regular heart rate and rhythm. S1, S2 heard. GI: Soft and nontender. NEUROLOGIC: Alert, awake, and oriented x3. MUSCULOSKELETAL: Moves all extremities. SKIN: Dry and intact. PSYCH: Calm. LABORATORY DATA: Troponin 0.022 and 0.024. Triglycerides 213, LDL 84, HDL 36. IMAGING DATA: Chest x-ray, no acute thoracic abnormalities. Please refer to other labs on the chart. IMPRESSION: 1. Chest pain, rule out acute coronary syndrome. Troponin x3 negative. Chest x-ray negative. EKG, normal sinus rhythm. Trend the troponins. No changes on tele. Likely due to elevated blood pressure. 2. Accelerated hypertension. The patient was started on her home medications. Clonidine p.r.n. 3. Acute kidney injury. Creatinine 1.6. We will continue to encourage to increase fluid intake. 4. High cholesterol. Continue statin. 5. Deep venous thrombosis prophylaxis. SCDs. PLAN: Continue to trend troponins, if negative and chest pain resolves, will discharge home to follow up with her PCP and political science instructor, Dr. Lewis for further workup. She had echo done 2 weeks ago by her political science instructor and was told she had aortic stenosis. She will continue to follow up with her political science instructor, advised to continue her current medications. Dictated by MANDEEP Baeza Jennifer Agee MD MY/MODL /[id number] MTDD
--- NOTE | 2019-08-30 22:51 | Discharge Summary ---
PRIMARY CARE PHYSICIAN: Dr. Copeland at [facility]. FINAL DISCHARGE DIAGNOSES: 1. Atypical chest pain.. 2. Accelerated hypertension. 3. Acute kidney injury. 4. High cholesterol. CONSULTANTS: None. PROCEDURES: None. HISTORY: Per HPI. HOSPITAL COURSE: This is a 73-year-old female with past medical history of hypertension, COPD, high cholesterol, and aortic stenosis, presented to the ER with complaints of chest discomfort. In the freestanding ER, she was noted to have significantly elevated blood pressure. Troponin x3 were negative. Chest x-ray was also unremarkable. She was admitted to rule out acute coronary syndrome. She reports chest pain/discomfort is nonradiating, improved once blood pressure had improved. She reports had recent echocardiogram with her child psychiatrist, Dr. Lewis and was told she had aortic stenosis and will follow up with him as an outpatient for further evaluation next week. Currently, she has no shortness of breath, vital signs are stable, afebrile, chest pain has resolved, and wants to go home, so we will discharge home to follow up with her PCP and child psychiatrist next week. COVID-19 was negative. PHYSICAL EXAMINATION: VITAL SIGNS: Temperature 97.5, pulse 50, respirations 18, blood pressure 137/55, and pulse ox is 98% on room air. GENERAL: In no acute distress. LUNGS: Clear to auscultation. CARDIOVASCULAR: Regular rate and rhythm. GI: Soft and nontender. NEUROLOGIC: Alert, awake, and oriented x3. MUSCULOSKELETAL: Moves all extremities. PSYCH: Calm. CONDITION AT DISCHARGE: Improved and stable. DC medications. Please see medication reconciliation list. FOLLOWUP: Follow up with PCP and child psychiatrist next week. TIME SPENT: Total time of discharge is 30 minutes. Dictated by MANDEEP Baeza Jennifer Agee MD MY/MODL /[id number] cc: [facility]
== END 2019-08-29 16:11 | disposition home or self-care (01) ==
LOC: FSED 19:30 → ERHOLD 22:56 → MED/SURG2 08-29 00:14
PROVIDERS: ADMIT Internal Medicine; ATTEND Internal Medicine
DX: R07.89 Other chest pain (principal); I35.0 Nonrheumatic aortic (valve) stenosis; I10 Essential (primary) hypertension; J44.9 Chronic obstructive pulmonary disease, unspecified; E78.00 Pure hypercholesterolemia, unspecified; Z80.1 Family history of malignant neoplasm of trachea, bronchus and lung; Z80.8 Family history of malignant neoplasm of other organs or systems; N17.9 Acute kidney failure, unspecified; Z11.59 Encounter for screening for other viral diseases
CPT/HCPCS: 36415; 71046; 80053; 80061; 82550; 82553 ×2; 83880; 84484 ×2; 85025; 87635; 93005; 99284; G0378 ×2

== ENCOUNTER → 2020-03-24 | Outpatient (CLI) | payer MEDICARE ==
[~2020-03-24] MED LIST: AMLODIPINE BESY10 MG PO; BACLOFEN10 MG PO; CATAPRES-TTS 31 EA TD; CRESTOR10 MG PO; DIOVAN160 MG PO; ESIDRIX25 MG PO; FISH OIL 1,0001 EAC3 PO; MULTI-VITAMIN1 EACH PO; SPIRONOLACTONE25 MG PO; ZEBETA10 MG PO
== END ==
LOC: RAD 13:50
PROVIDERS: ATTEND Family Medicine
DX: I10 Essential (primary) hypertension (principal); E78.5 Hyperlipidemia, unspecified; G47.30 Sleep apnea, unspecified; E55.9 Vitamin D deficiency, unspecified
CPT/HCPCS: 71046

== ENCOUNTER 2020-06-01 13:53 | Emergency (ER) | payer MEDICARE ==
[~2020-06-01] VITALS: Ht 152.4 cm; Wt 92.5 kg
[2020-06-01] MEDS ORDERED: FAMOTIDINE 20 MG/2 ML VIAL IV NR (15:15)
[2020-06-01] MEDS ORDERED: SODIUM CHLORIDE 0.9% 50ML 0 ML ONE (15:23)
[2020-06-01] MEDS ORDERED: IOPAMIDOL 370 MG/ML 200 ML INFUS..BTL INJ ONE (15:23)
[2020-06-01] MEDS ORDERED: DIATRIZOATE MEGL/DIATRIZOA SOD 30 ML BTL PO ONE (15:24)
[2020-06-01] MEDS ORDERED: FAMOTIDINE 20 MG/2 ML VIAL IV ONE (16:54)
[2020-06-01] MEDS ORDERED: PANTOPRAZOLE SO40 MG PO (18:52)
[2020-06-04] MEDS ORDERED: ASPIRIN81 MG PO (08:42)
[2020-06-04] MEDS ORDERED: ALIVE WOMEN'S1 EAC2 PO (08:42)
== END 2020-06-01 19:13 | disposition home or self-care (01) ==
LOC: FSED 14:35
DX: K92.1 Melena (principal); D64.9 Anemia, unspecified; K29.70 Gastritis, unspecified, without bleeding; R91.8 Other nonspecific abnormal finding of lung field; I10 Essential (primary) hypertension; J44.9 Chronic obstructive pulmonary disease, unspecified; G47.30 Sleep apnea, unspecified; M54.9 Dorsalgia, unspecified; G89.29 Other chronic pain
CPT/HCPCS: 74176; 99283; Q9967

== ENCOUNTER 2020-06-02 19:43 | Emergency (ER) | payer MEDICARE ==
[~2020-06-02] VITALS: Ht 160 cm; Wt 92.5 kg
[~2020-06-02 19:43] MED LIST changes: +PANTOPRAZOLE SO40 MG PO
[2020-06-02 20:38] LABS: BASOPHILS # (AUTO) 0.1 (0.0-0.1); BASOPHILS % 0.9 % (0.0-1.0); EOSINOPHILS # (AUTO) 0.3 (0.0-0.4); EOSINOPHILS % 3.5 % (0.0-6.0); HEMATOCRIT 32.3 % (34.2-44.1); HEMOGLOBIN 10.2 g/dL (12.0-16.0); LYMPHOCYTES # (AUTO) 1.8 (1.0-3.2); LYMPHOCYTES % 21.3 % (18.0-39.1); MEAN CORPUSCULAR HEMOGLOBIN 27.1 pg (28-32); MEAN CORPUSCULAR HGB CONC 31.6 g/dL (31-35); MEAN CORPUSCULAR VOLUME 85.9 fL (81-99); MONOCYTES # (AUTO) 0.8 (0.2-0.8); MONOCYTES % 8.8 % (4.4-11.3); NEUTROPHILS # (AUTO) 5.6 (2.1-6.9); NEUTROPHILS % 65.2 % (38.7-80.0); PLATELET COUNT 267 x10e3/uL (140-360); RED BLOOD COUNT 3.76 x10e6/uL (3.6-5.1); RED CELL DISTRIBUTION WIDTH 13.4 % (11.7-14.4)
[2020-06-02 20:47] LABS: INR 0.95; PROTHROMBIN TIME 13.2 seconds (11.9-14.5)
[2020-06-02 20:52] LABS: ANION GAP 16.1 mmol/L (8-16); CALCIUM 9.7 mg/dL (8.4-10.2); CREATININE, SERUM 1.9 mg/dL (0.57-1.11); POTASSIUM 5.1 mmol/L (3.5-5.1)
[2020-06-02 21:40] VITALS: BP 156/61
[2020-06-04] MEDS ORDERED: ALIVE WOMEN'S1 EAC2 PO (08:42)
[2020-06-04] MEDS ORDERED: ASPIRIN81 MG PO (08:42)
== END 2020-06-02 21:27 | disposition home or self-care (01) ==
LOC: ER 20:20
DX: R19.5 Other fecal abnormalities (principal); N28.9 Disorder of kidney and ureter, unspecified; R53.1 Weakness; I10 Essential (primary) hypertension; G47.30 Sleep apnea, unspecified
CPT/HCPCS: 36415; 80048; 85025; 85610; 85730; 99283

== ENCOUNTER → 2020-06-07 | Day surgery (SDC) | payer MEDICARE ==
[2020-06-04 10:35] LABS: BASOPHILS # (AUTO) 0.1 (0.0-0.1); BASOPHILS % 0.8 % (0.0-1.0); EOSINOPHILS # (AUTO) 0.3 (0.0-0.4); HEMATOCRIT 31.4 % (34.2-44.1); HEMOGLOBIN 9.6 g/dL (12.0-16.0); LYMPHOCYTES # (AUTO) 1.5 (1.0-3.2); LYMPHOCYTES % 21.5 % (18.0-39.1); MEAN CORPUSCULAR HEMOGLOBIN 27.2 pg (28-32); MEAN CORPUSCULAR HGB CONC 30.6 g/dL (31-35); MONOCYTES # (AUTO) 0.7 (0.2-0.8); MONOCYTES % 9.8 % (4.4-11.3); NEUTROPHILS # (AUTO) 4.5 (2.1-6.9); NEUTROPHILS % 63.6 % (38.7-80.0); PLATELET COUNT 238 x10e3/uL (140-360); RED BLOOD COUNT 3.53 x10e6/uL (3.6-5.1); RED CELL DISTRIBUTION WIDTH 13.6 % (11.7-14.4)
[~2020-06-07] MED LIST changes: +ALIVE WOMEN'S1 EAC2 PO; +ASPIRIN81 MG PO; +FENTANYL CITRATE/PF 100MCG/2 ML INJ ONE; +GLYCOPYRROLATE INJ 0.2 MG/ML VIAL ONE; +LIDOCAINE HCL 2% LOCAL INJ 5 ML SDV VIAL INJ ONE; +MIDAZOLAM HCL 2 MG/2 ML VIAL ONE; +PANTOPRAZOLE 40 MG 10ML VIAL ONE; +PROPOFOL IV EMULSION 10 MG/ML 20 ML VIAL ONE
[2020-06-07 18:30] VITALS: BP 120/59
[2020-06-07 19:07] LABS: % IRON SATURATION 9 % (15-50); IRON 30 ug/dL (50-170); TOTAL IRON BINDING CAPACITY 339 ug/dL (261-478); TRANSFERRIN 242 mg/dL (180-382)
== END | disposition home or self-care (01) ==
LOC: OR 13:10
PROVIDERS: ATTEND Internal Medicine Gastroenterology
DX: K29.00 Acute gastritis without bleeding (principal); K29.50 Unspecified chronic gastritis without bleeding; K21.00 Gastro-esophageal reflux disease with esophagitis, without bleeding; K31.89 Other diseases of stomach and duodenum; G47.33 Obstructive sleep apnea (adult) (pediatric); E78.5 Hyperlipidemia, unspecified; E11.22 Type 2 diabetes mellitus with diabetic chronic kidney disease; I12.9 Hypertensive chronic kidney disease with stage 1 through stage 4 chronic kidney disease, or unspecified chronic kidney disease; N18.9 Chronic kidney disease, unspecified; I44.0 Atrioventricular block, first degree; Z01.810 Encounter for preprocedural cardiovascular examination; Z01.812 Encounter for preprocedural laboratory examination; Z20.822 Contact with and (suspected) exposure to COVID-19; Z79.82 Long term (current) use of aspirin; Z68.33 Body mass index [BMI] 33.0-33.9, adult
CPT/HCPCS: 36415 ×2; 43239; 82607; 82746; 83540; 84466; 85025; 85045; 93005; C9113; J2001; J2250; J2704; J3010; U0002

== ENCOUNTER → 2020-06-08 | Outpatient (CLI) | payer MEDICARE ==
[~2020-06-08] MED LIST changes: +DIATRIZOATE MEGL/DIATRIZOA SOD 30 ML BTL PO ONE; -FENTANYL CITRATE/PF 100MCG/2 ML INJ ONE; -GLYCOPYRROLATE INJ 0.2 MG/ML VIAL ONE; -LIDOCAINE HCL 2% LOCAL INJ 5 ML SDV VIAL INJ ONE; -MIDAZOLAM HCL 2 MG/2 ML VIAL ONE; -PANTOPRAZOLE 40 MG 10ML VIAL ONE; -PROPOFOL IV EMULSION 10 MG/ML 20 ML VIAL ONE
== END ==
LOC: CT 14:30
PROVIDERS: ATTEND Internal Medicine Gastroenterology
DX: R10.9 Unspecified abdominal pain (principal)
CPT/HCPCS: 74176